=== PATIENT | male | born 1970 | race Caucasian/White ===

== ENCOUNTER 2020-12-26 15:31 | Emergency (ER) | payer OTHER, SELFPAY ==
[2020-12-26 15:45] VITALS: BP 134/94; PULSE 74; RESP 16; TEMP 36.7; O2SAT 100
--- NOTE | 2020-12-26 15:57 | ED.DENTAL ---
HPI - Dental/Oral General Chief complaint: Dental/Oral Stated complaint: Lt side facial swelling Time Seen by Provider: 12/26/20 15:49 Source: patient and RN notes reviewed Mode of arrival: ambulatory Limitations: no limitations History of Present Illness HPI Narrative: 50-year-old male presents with concern for left upper facial swelling, pain, dental pain. He reports a broken tooth in that area, the tooth has been broken for a long time. He reports he now has pain in that area. Reports she has been using heat, ibuprofen with little relief. Reports she is make an appoint with a dentist. He denies swollen lips, swollen tongue, difficulty swallowing, fever. Denies headache MD Complaint: tooth pain Related Data Home Medications Medication Instructions Recorded Confirmed lisinopril 40 mg PO DAILY 12/26/20 12/26/20 Allergies Allergy/AdvReac Type Severity Reaction Status Date / Time Penicillins Allergy Intermediate HIVES Verified 12/26/20 15:52 SHELLFISH Allergy Severe ANAPHYLACTI Uncoded 12/26/20 15:52 C Review of Systems Review of Systems: CONSTITUTIONAL: Denies malaise, chills, sweats, or fever. EYES: Denies visual changes, redness, or discharge. ENT: Reports left upper dental pain, facial swelling SKIN: Denies rash or itching. MUSCULOSKELETAL: Denies myalgia. NEUROLOGIC: Denies numbness, weakness, or headache. All systems reviewed & are unremarkable except as noted in HPI and below PMFSH Comments At time of signature, agree with nursing past medical, surgical, social and family history. There is no relevant family history pertinent to the presenting complaint Exam Narrative: GENERAL: Well-appearing, well-nourished, and in no acute distress. HEAD: Normocephalic, atraumatic. EYES: PERRLA, sclera clear, and EOMI. ENT: Nares clear. Mucous membranes moist. Oropharynx without erythema or lesions. Broken teeth, missing teeth, caries, mild left facial swelling noted NECK: Supple. No lymphadenopathy. CHEST: No respiratory distress. Speaks in full sentences. HEART: Regular rate and rhythm. SKIN: Warm, dry, no visible rash. NEURO: Alert and oriented x3. PSYCH: Normal mood and affect Course Course Emergency Course: Patient is aware of diagnosis, understands and agrees to treatment plan. Anticipatory guidance given. Patient agrees to follow-up as directed and is aware of reasons to seek care at the emergency department. Portions of this record may have been created with voice recognition software Vital Signs Vital signs: Vital Signs Temperature 98.0 F 12/26/20 15:45 Pulse Rate 74 12/26/20 15:45 Respiratory Rate 16 12/26/20 15:45 Blood Pressure 134/94 H 12/26/20 15:45 Pulse Oximetry 100 12/26/20 15:45 Temperature 98.0 F 12/26/20 15:45 Pulse Rate 74 12/26/20 15:45 Respiratory Rate 16 12/26/20 15:45 Blood Pressure 134/94 H 12/26/20 15:45 Pulse Oximetry 100 12/26/20 15:45 Reviewed. Patient has history of hypertension MDM - Dental/Oral MDM Narrative Medical decision making narrative: Patients pain and complaint coupled with physical findings are consistant with dentalgia. There are no focal signs of space occupying lesions that are compromising to the airway; no dysphagia, odynophagia, dysphonia, or dyspnea. No uvular deviation or soft palate edema. Patient is non-toxic appearing. The floor of the mouth is soft with no signs of Jose's Angina; no induration below mandible, no neck pain. Patient is without trismus or drooling and able to swallow secretions. Patient is felt appropriate for discharge home with dental follow up. Critical Care Time Critical Care Time Critical Care Time: No Discharge Plan Discharge Clinical Impression: Dental abscess Patient Disposition: Home, Self-Care Condition: Stable Instructions: Antibiotic Form, Dental Abscess (ED) Additional Instructions: Take antibiotic as directed Avoid temperature extremes May apply heat or ic
== END 2020-12-26 16:07 | disposition home or self-care (01) ==
PROVIDERS: Emergency Provider Nurse Practitioner; PCP Family Medicine
DX: K04.7 Periapical abscess without sinus (principal); I10 Essential (primary) hypertension
CPT/HCPCS: 99213; G0463

== ENCOUNTER 2021-02-14 10:21 | Emergency (ER) | payer OTHER, SELFPAY ==
--- NOTE | ~2021-02-14 | XR_ITS ---
EXAMINATION: XR finger 5th LT min 2V DATE: 02/14/2021 10:54 INDICATION: Left fifth digit pain post blunt trauma one day prior TECHNIQUE: Dorsal palmar, lateral and 2 oblique views of the left fifth digit were obtained COMPARISON: None FINDINGS: Nondisplaced comminuted fracture of the tuft of the left fifth distal phalanx. Alignment remains esse ntially anatomic. No other fractures identified. Joint spaces are normal. Soft tissue swelling about the mid to distal fifth digit. IMPRESSION: 1. Nondisplaced comminuted tuft fracture at the left fifth distal phalanx. If there is associated gisella lbed injury this would be considered equivalent of an open/compound fracture at increased risk of inf ection. Reviewed, dictated and finalized at location A. EAR POWER REACTOR OPERATOR IMPRESSION: 1. Nondisplaced comminuted tuft fracture at the left fifth distal phalanx. If t here is associated nailbed injury this would be considered equivalent of an ope n/compound fracture at increased risk of infection.
[2021-02-14 10:39] VITALS: BP 123/92; PULSE 68; RESP 16; TEMP 36.8; O2SAT 100
--- NOTE | 2021-02-14 11:15 | ED.UPPEXIN ---
HPI - Extremity Injury (Upper) General Chief Complaint: Extremity Injury, Upper Stated Complaint: Pinky Finger Lt Hand Source: patient and RN notes reviewed Mode of arrival: ambulatory History of Present Illness HPI narrative: This is a 50-year-old male who presented to urgent care with complaints of trauma to his left small finger. According to patient he smashed his finger while at work yesterday he has been experiencing pain with movement since. Patient is able to move finger with pain, capillary refill within normal limits, he does have discoloration to at pinky and his pulses are palpable. He does have a nondisplaced fracture to the left small finger. MD complaint: injury to: left Related Data Home Medications Medication Instructions Recorded Confirmed lisinopril 40 mg PO DAILY 12/26/20 02/14/21 Allergies Allergy/AdvReac Type Severity Reaction Status Date / Time Penicillins Allergy Intermediate HIVES Verified 02/14/21 10:48 SHELLFISH Allergy Severe ANAPHYLACTI Uncoded 02/14/21 10:48 C Review of Systems Review of Systems: A 14 organ system Review of Systems was performed and pertinent positives included in the HPI, otherwise remaining ROS is negative. [facility] Family History Family History (Updated 02/14/21 @ 11:37 by JARED BunchP-C) Other Family history non-contributory Exam Narrative: GENERAL: This is a well-nourished, well-developed patient, in no apparent distress. HEAD: normocephalic, atraumatic. EYES: PERRL. Sclera clear/white. Vision is grossly intact. EARS: External ears normal, auditory canals clear and without drainage, TMs normal without perforation. Hearing grossly intact. NOSE: External nose normal with no obvious nasal discharge, nares without redness, no rhinorrhea. THROAT: Mucous membranes moist, posterior pharynx clear. NECK: Neck supple, non-tender without lymphadenopathy, masses or thyromegaly. CARDIOVASCULAR: Regular rate and rhythm without murmurs, gallops, or rubs. RESPIRATORY: Clear to auscultation. Breath sounds equal bilaterally. No wheezes, rales, or rhonchi. GASTROINTESTINAL: Abdomen soft, non-tender, nondistended. Bowel sounds are active. No hepato-splenomegaly, or palpable masses. No guarding. SKIN: warm, intact with no suspicious lesions or rash, good texture and turgor. NEURO: awake, alert, and oriented to person, place and time. There were no obvious focal neurologic abnormalities. Steady gait EXTREMITIES: Left small finger with discoloration limited range of motion due to pain capillary refill within normal limits no neurovascular deficiency noted pulses palpable to the affected extremity BACK: Nontender without deformity or crepitance. No flank tenderness. Course Course Emergency Course: Finger splint placed at the left small finger. Ibuprofen 800 mg prescribed patient instructed to follow-up with a orthopedic surgeon Vital Signs Vital signs: Vital Signs Temperature 98.3 F 02/14/21 10:39 Pulse Rate 68 02/14/21 10:39 Respiratory Rate 16 02/14/21 10:39 Blood Pressure 123/92 H 02/14/21 10:39 Pulse Oximetry 100 02/14/21 10:39 Temperature 98.3 F 02/14/21 10:39 Pulse Rate 68 02/14/21 10:39 Respiratory Rate 16 02/14/21 10:39 Blood Pressure 123/92 H 02/14/21 10:39 Pulse Oximetry 100 02/14/21 10:39 Procedures Other Procedure Procedure 1: Other Procedure: Finger splint placed to the left small finger MDM - Extremity Injury (Upper) Differential Diagnosis Differential diagnosis: Likely sprain and strain of wrist, fracture of wrist, fracture of hand and other (Finger fracture) Imaging Data My impression: Nondisplaced fracture of the left fifth distal phalanx Discharge Plan Discharge Clinical Impression: Finger fracture Qualifiers: Encounter type: initial encounter Finger: little finger Fracture type: closed Phalanx: distal Fracture alignment: nondisplaced Laterality: left Qualified Code(s): S62.667A - Nondisplaced fract
== END 2021-02-14 11:21 | disposition home or self-care (01) ==
PROVIDERS: Emergency Provider Nurse Practitioner; PCP Family Medicine
DX: S62.667A Nondisplaced fracture of distal phalanx of left little finger, initial encounter for closed fracture (principal); W23.0XXA Caught, crushed, jammed, or pinched between moving objects, initial encounter; Y99.0 Civilian activity done for income or pay
CPT/HCPCS: 29130; 73140; 99214; G0463

== ENCOUNTER 2021-08-31 16:00 | Emergency (ER) | payer OTHER, SELFPAY ==
--- NOTE | ~2021-08-31 | XR_ITS ---
EXAMINATION: XR chest 2V DATE: 08/31/2021 16:44 INDICATION: Cough and shortness of breath TECHNIQUE: PA and lateral views of the chest are obtained. COMPARISON: None available FINDINGS: The lungs are free of acute opacities. There is no pleural effusion or pneumothorax. The ca rdiomediastinal silhouette is normal. The visualized bones and soft tissues are unremarkable. IMPRESSION: 1. No acute cardiopulmonary abnormality. Reviewed, dictated and finalized at location A.
[2021-08-31 16:12] VITALS: BP 110/77; PULSE 71; RESP 18; TEMP 36.7; O2SAT 99
--- NOTE | 2021-08-31 16:27 | ED.URI ---
HPI - URI/Sore Throat General Chief Complaint: Upper Respiratory Infection Stated Complaint: sob,congestion,cough Time Seen by Provider: 08/31/21 16:20 Source: patient Mode of arrival: ambulatory Limitations: no limitations History of Present Illness HPI Narrative: Mr. Chatman is a 50-year-old male patient presenting to the clinic today with complaints of shortness of breath, chest congestion, and a productive cough x5 days. The patient has seen his primary care provider and he was given a Z-Chilo, dexamethasone, Tessalon Perles, and an albuterol inhaler. He reports that he is not feeling any better and feels as though he is becoming more short of breath as he is moving around. He states he took a COVID test yesterday and it was negative. He reports he has a productive cough with grayish-brown phlegm. MD elicited complaint: cough and other (Chest congestion and shortness of breath) Related Data Home Medications Medication Instructions Recorded Confirmed lisinopril 40 mg tablet 40 mg PO DAILY 12/26/20 08/31/21 albuterol sulfate 90 mcg/actuation 1 inh inhalation DIRECTED 08/31/21 08/31/21 aerosol inhaler azithromycin 250 mg tablet 250 tablet DIRECTED 08/31/21 08/31/21 benzonatate 200 mg capsule 200 cap PO DIRECTED 08/31/21 08/31/21 dexamethasone 6 mg tablet 1 tablet DIRECTED 08/31/21 08/31/21 Allergies Allergy/AdvReac Type Severity Reaction Status Date / Time Penicillins Allergy Intermediate HIVES Verified 08/31/21 16:37 SHELLFISH Allergy Severe ANAPHYLACTI Uncoded 08/31/21 16:37 C Review of Systems Review of Systems: Pertinent positives per HPI. Patient denies any fever, chills, rash, headache, visual changes, dizziness, cough, shortness of breath, chest pain, palpitations, nausea, vomiting, diarrhea, constipation, abdominal pain, or any urinary issues. PMFSH Family History Family History Other Family history non-contributory Comments At the time of my signature, I reviewed and agree with the nursing past medical, surgical, social, and family history. There is no relevant family history pertinent to the patient complaint. Exam Narrative: General: Well-developed, well nourished, in mild respiratory distress-having to take deep breaths in between every 3-4 words when speaking Head: Normocephalic, atraumatic Eyes: Pupils equally round and reactive to light bilaterally, EOM intact, sclera and conjunctive clear, no discharge, lids normal Ears: TMs intact and clear, ear canals clear, no drainage, grossly hearing normal. Nose: Nares patent, clear nasal discharge, no inflammation, no sinus tenderness. Mouth: Oral pharynx without lesions or masses, good dentition, MMM. Neck: Supple, trachea midline, no enlargement of anterior or posterior cervical nodes, no thyroid masses or goiter palpable. Cardio: Regular rate and rhythm, s1 and s2 normal, no murmur appreciated. Resp: Crackles heard over the right lower posterior lobe, otherwise clear, SPO2 99% on room air Course Course Emergency Course: Portions of this record may have been created with voice recognition software. Level of Care: Express Care Visit Vital Signs Vital signs: Vital Signs Temperature 36.7 C 08/31/21 16:12 Pulse Rate 71 08/31/21 16:12 Respiratory Rate 18 08/31/21 16:12 Blood Pressure 110/77 08/31/21 16:12 Pulse Oximetry 99 08/31/21 16:12 Oxygen Delivery Room Air 08/31/21 16:12 Temperature 36.7 C 08/31/21 16:12 Pulse Rate 71 08/31/21 16:12 Respiratory Rate 18 08/31/21 16:12 Blood Pressure 110/77 08/31/21 16:12 Pulse Oximetry 99 08/31/21 16:12 Oxygen Delivery Room Air 08/31/21 16:12 Vital signs reviewed MDM - URI/Sore Throat MDM Narrative Medical decision making narrative: At the time of visit patient is resting comfortably on the exam table. He has a little bit of increased work to breathe. Chest x-ray was comp
== END 2021-08-31 17:16 | disposition home or self-care (01) ==
PROVIDERS: Emergency Provider Nurse Practitioner Family; PCP Family Medicine
DX: J22 Unspecified acute lower respiratory infection (principal); I10 Essential (primary) hypertension
CPT/HCPCS: 71046; 99213; G0463

== ENCOUNTER 2021-09-02 17:42 | Emergency (ER) | payer OTHER, SELFPAY ==
[2021-09-02] VITALS (8 sets, daily range): BP systolic 122–126; BP diastolic 80–90; PULSE 66–72; RESP 16–18; TEMP 36.6; O2SAT 98–100
--- NOTE | ~2021-09-02 | XR_ITS ---
EXAMINATION: XR chest 2V Exam Date/Time: 09/02/2021 17:55 CDT HISTORY: SOB, cough,htn,smoker Comparison: 08/31/2021. RESULT: Lines, tubes, and devices: None. Lungs and pleura: Clear. Cardiomediastinal silhouette: Stable cardiomediastinal silhouette. Other: No acute osseous or upper abdominal finding. IMPRESSION: No acute cardiopulmonary process. Reviewed, dictated and finalized at location K.
--- NOTE | 2021-09-02 18:05 | ED.SOB ---
HPI - SOB/Dyspnea General Chief Complaint: Shortness of Breath/Dyspnea Stated Complaint: SOB X2D Time Seen by Provider: 09/02/21 17:48 History of Present Illness HPI Narrative: 50-year-old male presents the emergency room for evaluation of increasing shortness of breath. Patient states that he recently returned from a car ride trip from [facility], where he admits to very few stops. Patient states he woke up on Friday morning with mild shortness of breath, thinking that it was likely with upper respiratory infection. Patient states that he contacted his PCP, and was told that he would not be seen due to COVID-like symptoms. 2 days later patient states he went to [facility] to take a COVID test, they came back negative. Patient then called his PCP second time, and was told again he would not be seen in the office due to COVID-like symptoms. At that time his PCP prescribed azithromycin, low-dose dexamethasone, Tessalon Perles, and an inhaler. Patient states that he was not receiving any relief with those medications. States on Friday he woke up and went to a local urgent care, where chest x-ray was performed. Per radiologist notes, chest x-ray was negative for any acute cardiopulmonary disease, however the COMBINED RAIL OPERATOR at the urgent care read that as early onset pneumonia. Patient was told to discontinue azithromycin use and started on Levaquin. Today, patient states the shortness of breath has worsened. Patient also reports wheezing and a nonproductive cough. Related Data Home Medications Medication Instructions Recorded Confirmed lisinopril 40 mg tablet 40 mg PO DAILY 12/26/20 08/31/21 albuterol sulfate 90 mcg/actuation 1 inh inhalation DIRECTED 08/31/21 08/31/21 aerosol inhaler azithromycin 250 mg tablet 250 tablet DIRECTED 08/31/21 08/31/21 benzonatate 200 mg capsule 200 cap PO DIRECTED 08/31/21 08/31/21 dexamethasone 6 mg tablet 1 tablet DIRECTED 08/31/21 08/31/21 Allergies Allergy/AdvReac Type Severity Reaction Status Date / Time Penicillins Allergy Intermediate HIVES Verified 09/02/21 17:47 SHELLFISH Allergy Severe ANAPHYLACTI Uncoded 09/02/21 17:47 C Review of Systems Review of Systems: CONSTITUTIONAL: Denies fever, chills, or sweats. EYES: Denies visual changes, redness, or discharge. ENT: Denies rhinorrhea, congestion, sore throat, or otalgia. CARDIOVASCULAR: Denies chest pain, palpitations, or edema. RESPIRATORY: Reports cough or dyspnea. NEUROLOGIC: Denies headache, numbness, dizziness, or weakness. [facility] Family History Family History Other Family history non-contributory Exam Narrative: GENERAL: Well-appearing, well-nourished, and in no acute distress. HEAD: Normocephalic, atraumatic. EYES: PERRLA and EOMI. CHEST: Inspiratory wheezing throughout, tachypneic with a respiratory rate of 24-26 HEART: Regular rate and rhythm. No murmur heard. Normal peripheral pulses. SKIN: Warm, dry, no rash. NEURO: No focal deficits. Alert and oriented x3. PSYCH: Normal mood and affect. Course Vital Signs Vital signs: Vital Signs Temperature 36.6 C 09/02/21 17:43 Pulse Rate 70 09/02/21 17:43 Respiratory Rate 18 09/02/21 17:43 Blood Pressure 126/80 09/02/21 17:43 Pulse Oximetry 100 09/02/21 17:43 Oxygen Delivery Room Air 09/02/21 17:43 Temperature 36.6 C 09/02/21 17:43 Pulse Rate 72 09/02/21 17:50 Respiratory Rate 18 09/02/21 17:43 Blood Pressure 126/80 09/02/21 17:43 Pulse Oximetry 100 09/02/21 17:51 Oxygen Delivery Room Air 09/02/21 17:51 MDM - SOB/Dyspnea MDM Narrative Medical decision making narrative: 50-year-old male presented to the emergency room for evaluation of dyspnea, most likely secondary to a viral infection. Presentation is not consistent with acute cardiac etiologies including ACS, CHF, pericardial effusion or tamponade. Not consistent with acute respiratory etiology includes
[2021-09-02] MEDS: methylPREDNISolone SOD SUCC 125 MG VIAL IV PUSH (18:18)
[2021-09-02 18:23] LABS: Basophils Absolute Auto 0.1 K/mm3 (0.0-0.1); Basophils Percent Auto 0.3 % (0.2-1.2); Hematocrit 48.7 % (42.0-52.0); Hemoglobin 16.3 g/dL (14.0-18.0); Immature Granulocyte Absolute 0.16 K/mm3 (0.00-0.031); Immature Granulocyte Percent A 0.9 % (0-0.5); Lymphocytes Absolute Auto 1.93 K/mm3 (0.9-3.2); Lymphocytes Percent Auto 10.8 % (18.3-44.2); Mean Corpuscular HGB Conc 33.5 g/dl (32-36); Mean Corpuscular Hemoglobin 30.4 pg (26-34); Mean Corpuscular Volume 90.7 fl (80-100); Mean Platelet Volume 8.9 fl (7.4-10.4); Monocytes Absolute Auto 1.3 K/mm3 (0.1-0.6); Monocytes Percent Auto 7.4 % (2.6-8.5); Neutrophils Absolute Auto 14.4 K/mm3 (1.3-6.7); Neutrophils Percent Auto 80.6 % (45.5-73.1); Platelet Count Result 322 k/mm3 (150-375); Red Blood Count 5.37 M/mm3 (4.6-6.20); Red Cell Distribution Width 12.6 % (11.5-14.5); White Blood Count 17.8 K/mm3 (4.5-10.0)
[2021-09-02 18:35] LABS: Alanine Aminotransferase 23 U/L (6-50); Albumin Level 4.4 g/dL (3.5-5.1); Alkaline Phosphatase 69 U/L (38-126); Anion Gap 9 mmol/L (8-16); Aspartate Amino Transferase 24 U/L (17-59); Bilirubin,Total 0.5 mg/dL (0.2-1.3); Blood Urea Nitrogen 25 mg/dL (9-20); Calcium 9.1 mg/dL (8.4-10.2); Carbon Dioxide 20 mmol/L (22-30); Chloride 107 mmol/L (98-107); D Dimer 0.33 ug/mL (<0.48); Estimated CRCL calculation 82 ml/min; Estimated Glomerular Filt Rate 59; Glucose 115 mg/dL (65-110); Lactic Acid Reflex 1.8 mmol/L (0.7-2.0); Potassium 4.1 mmol/L (3.4-5.0); Sodium 136 mmol/L (137-145)
[2021-09-02 18:59] LABS: Influenza A QL RT-PCR Negative (Negative); Influenza B QL RT-PCR Negative (Negative); SARS-CoV-2 RNA PCR Negative
[2021-09-02] MEDS: ALBUTEROL SULFATE NEB 2.5 MG/3 ML INH INHALATION (19:37)
[2021-09-02] MEDS: IPRATROPIUM BR 0.02% INH SOLN 0.5 MG/2.5 ML VIAL INHALATION (19:38)
[2021-09-02 19:58] LABS: NT Pro B Type Natriuretic Pept 159 pg/mL (5-100)
[2021-09-02 20:07] LABS: Troponin I < 0.012 ng/mL (0.000-0.034)
== END 2021-09-02 20:42 | disposition home or self-care (01) ==
PROVIDERS: Emergency Provider Nurse Practitioner Family
DX: R06.2 Wheezing (principal); R06.02 Shortness of breath; Z20.822 Contact with and (suspected) exposure to COVID-19
CPT/HCPCS: 36415; 71046; 80053; 83605; 83880; 84484; 85025; 85380; 87502; 94640; 96374; 99284; C9803; J2930; U0003; U0005

== ENCOUNTER 2021-10-11 05:45 | Emergency (ER) | payer OTHER, SELFPAY ==
--- NOTE | ~2021-10-11 | CT_ITS ---
EXAMINATION: CT abdomen pelvis wo con DATE: 10/11/2021 06:35 INDICATION: Right-sided flank pain with nausea. History of renal stones. Pyelonephritis. TECHNIQUE: Computed tomography (CT) of the abdomen and pelvis was performed without intravenous contr ast. The dose-length product was 1613.55 mGy-cm. Automated exposure control and iterative reconstruct ion technique were employed. COMPARISON: CT dated 09/04/2016. FINDINGS: Lung bases unremarkable. Heart size normal. No significant pleural or pericardial effusion. There are calcified granulomas in the liver and spleen. Gallbladder is present. The pancreas, adrena l glands are unremarkable. There is atrophy of the upper pole of the left kidney with nonobstructing left renal stones. There is a 3 mm right UVJ stone with mild hydronephrosis. Bladder is decompressed. Nonobstructive bowel gas pattern. Normal appendix. No evidence for appendicitis or diverticulitis. N o free air or free fluid. Mild lumbar spondylosis. IMPRESSION: 1. Right UVJ stone measuring 3 mm with mild hydronephrosis. 2: Nonobstructing left nephrolithiasis with left renal atrophy. Reviewed, dictated and finalized at location L.
[2021-10-11 05:52] VITALS: BP 151/94; PULSE 69; RESP 18; TEMP 36.2; O2SAT 100
[2021-10-11 06:12] LABS: Alanine Aminotransferase 17 U/L (6-50); Albumin Level 4.2 g/dL (3.5-5.1); Alkaline Phosphatase 65 U/L (38-126); Anion Gap 7 mmol/L (8-16); Aspartate Amino Transferase 22 U/L (17-59); Bilirubin,Total 0.5 mg/dL (0.2-1.3); Blood Urea Nitrogen 17 mg/dL (9-20); Calcium 9.2 mg/dL (8.4-10.2); Carbon Dioxide 27 mmol/L (22-30); Chloride 106 mmol/L (98-107); Estimated CRCL calculation 89 ml/min; Estimated Glomerular Filt Rate > 60; Glucose 122 mg/dL (65-110); Lipase 225 U/L (23-300); Potassium 4.3 mmol/L (3.4-5.0); Sodium 140 mmol/L (137-145)
[2021-10-11 06:14] LABS: Basophils Absolute Auto 0.1 K/mm3 (0.0-0.1); Basophils Percent Auto 0.6 % (0.2-1.2); Eosinophils Absolute Auto 0.2 K/mm3 (0-0.3); Eosinophils Percent Auto 1.7 % (0-4.4); Hematocrit 48.8 % (42.0-52.0); Hemoglobin 15.7 g/dL (14.0-18.0); Immature Granulocyte Absolute 0.07 K/mm3 (0.00-0.031); Immature Granulocyte Percent A 0.6 % (0-0.5); Lymphocytes Absolute Auto 1.98 K/mm3 (0.9-3.2); Lymphocytes Percent Auto 17.5 % (18.3-44.2); Mean Corpuscular HGB Conc 32.2 g/dl (32-36); Mean Corpuscular Hemoglobin 30.4 pg (26-34); Mean Corpuscular Volume 94.6 fl (80-100); Mean Platelet Volume 9.2 fl (7.4-10.4); Monocytes Absolute Auto 1.1 K/mm3 (0.1-0.6); Neutrophils Absolute Auto 7.9 K/mm3 (1.3-6.7); Neutrophils Percent Auto 69.6 % (45.5-73.1); Platelet Count Result 332 k/mm3 (150-375); Red Blood Count 5.16 M/mm3 (4.6-6.20); Red Cell Distribution Width 12.9 % (11.5-14.5); White Blood Count 11.3 K/mm3 (4.5-10.0)
[2021-10-11 06:14] LABS: Appearance Urine Clear (Clear); Bilirubin Urine Negative (Negative); Blood Urine 2+ (Negative); Color Urine Yellow (Yellow); Glucose Urine UA Negative (Negative); Ketones Urine Negative (Negative); Leukocyte Esterase Ur Negative LEU/UL (Negative); Nitrate Urine Negative (Negative); Protein Urine Negative (Negative); Urobilinogen Urine 0.2 mg/dL (<2.0); pH Urine 6.5 (5.0-9.0)
[2021-10-11 06:18] LABS: Mucus Urine Rare /lpf
--- NOTE | 2021-10-11 06:18 | ED.GENADULT ---
HPI - General Adult General Chief complaint: Abdominal Pain Stated complaint: rt lower abd pain, nausea Time Seen by Provider: 10/11/21 06:08 History of Present Illness HPI narrative: Patient is a 50-year-old gentleman who presents the emergency department with chief complaint of right lower quadrant and right flank pain. Patient reports that he has history of kidney stones and reports that this evening he suddenly woke up from sleep having severe pain in his right lower quadrant and right flank area. Patient states it feels similar to whenever he passed a kidney stone in the past patient reports he is feels diaphoretic reports that he is nauseated patient reports symptoms are not worsened by anything nor are they improved by anything Related Data Home Medications Medication Instructions Recorded Confirmed lisinopril 40 mg tablet 40 mg PO DAILY 12/26/20 08/31/21 albuterol sulfate 90 mcg/actuation 1 inh inhalation DIRECTED 08/31/21 08/31/21 aerosol inhaler azithromycin 250 mg tablet 250 tablet DIRECTED 08/31/21 08/31/21 benzonatate 200 mg capsule 200 cap PO DIRECTED 08/31/21 08/31/21 dexamethasone 6 mg tablet 1 tablet DIRECTED 08/31/21 08/31/21 Allergies Allergy/AdvReac Type Severity Reaction Status Date / Time Penicillins Allergy Intermediate HIVES Verified 10/11/21 05:57 SHELLFISH Allergy Severe ANAPHYLACTI Uncoded 10/11/21 05:57 C Review of Systems Review of Systems: A 10 system review of systems was completed on the patient and is negative except for what is stated in the HPI. Nursing and ancillary documentation was reviewed. [facility] Family History Family History Other Family history non-contributory Exam Narrative: GENERAL: Well-appearing, well-nourished, moderate pain distress, diaphoretic HEAD: Normocephalic, atraumatic. EYES: PERRLA and EOMI. ENT: Nares clear, no rhinorrhea or epistaxis. Mucous membranes moist. NECK: Supple. CHEST: Clear to auscultation. No respiratory distress. HEART: Regular rate and rhythm. No murmur heard. Normal peripheral pulses. ABDOMEN: Soft, nontender, nondistended, normal active bowel sounds. EXTREMITIES: Normal range of motion. No edema. SKIN: Warm, dry, no rash. NEURO: No focal deficits. Alert and oriented x3. PSYCH: Normal mood and affect. Course Course Emergency Course: Patient's pain is being controlled with IV narcotics nausea medications and fluids a CT scan has been ordered to evaluate for possible obstructing stone. Vital Signs Vital signs: Vital Signs Temperature 36.2 C L 10/11/21 05:52 Pulse Rate 69 10/11/21 05:52 Respiratory Rate 18 10/11/21 05:52 Blood Pressure 151/94 H 10/11/21 05:52 Pulse Oximetry 10/11/21 05:52 Oxygen Delivery Room Air 10/11/21 05:52 Temperature 36.2 C L 10/11/21 05:52 Pulse Rate 10/11/21 05:52 Respiratory Rate 18 10/11/21 05:52 Blood Pressure 151/94 H 10/11/21 05:52 Pulse Oximetry 10/11/21 05:52 Oxygen Delivery Room Air 10/11/21 05:52 Medical Decision Making Vital Signs Vital Signs: Vital Signs Temperature 36.2 C L 10/11/21 05:52 Pulse Rate 10/11/21 05:52 Respiratory Rate 10/11/21 05:52 Blood Pressure 151/94 H 10/11/21 05:52 Pulse Oximetry 10/11/21 05:52 Oxygen Delivery Room Air 10/11/21 05:52 Temperature 36.2 C L 10/11/21 05:52 Pulse Rate 10/11/21 05:52 Respiratory Rate 10/11/21 05:52 Blood Pressure 151/94 H 10/11/21 05:52 Pulse Oximetry 10/11/21 05:52 Oxygen Delivery Room Air 10/11/21 05:52 Lab Data Result diagrams: 10/11/21 05:58 10/11/21 05:58 Labs: Lab Results 10/11/21 10/11/21 10/11/21 Range/Units 05:58 05:58 06:03 WBC 11.3 H (4.5-10.0) K/mm3 RBC 5.16 (4.6-6.20) M/mm3 Hgb 15.7 (14.0-18.0) g/dL Hct 48.8 (42.0-52.0) % MCV 94.6 (80-100) fl MCH 30.4 (
[2021-10-11 06:24] LABS: Add Urine Microscopic? YES
[2021-10-11] MEDS: MORPHINE SULFATE (*CRX) 4 MG/ML INJ IV PUSH (06:24)
[2021-10-11] MEDS: ONDANSETRON INJ 4 MG/2 ML VIAL IV PUSH (06:24)
[2021-10-11] MEDS: SODIUM CHLORIDE 0.9% IV 1,000 ML 999 ML IV CONT (06:24)
[2021-10-11 06:34] VITALS: BP 148/99; PULSE 63; RESP 18; O2SAT 98
--- NOTE | 2021-10-11 07:18 | PC.NURSE ---
Bedside report received from Sofia CABRERA. Patient resting comfortably.
[2021-10-11 07:35] VITALS: BP 142/88; PULSE 52; O2SAT 97
[2021-10-11 08:09] VITALS: BP 130/88; PULSE 86; RESP 16; O2SAT 100
== END 2021-10-11 08:15 | disposition home or self-care (01) ==
PROVIDERS: Emergency Medicine; Emergency Provider General Practice; PCP Family Medicine
DX: N13.2 Hydronephrosis with renal and ureteral calculous obstruction (principal)
CPT/HCPCS: 36415; 74176; 80053; 81001; 83690; 85025; 96361; 96374; 96375; 99284; J2270; J2405; J7030

== ENCOUNTER 2021-10-19 17:27 | Emergency (ER) | payer OTHER, SELFPAY ==
--- NOTE | 2021-10-19 19:00 | PC.NURSE ---
pt called twice for triage and did not answer. pt left without being seen by triage or provider
== END 2021-10-19 19:00 | disposition left against medical advice (07) ==
LOC: ANHED 19:06
PROVIDERS: PCP Family Medicine
DX: Z53.21 Procedure and treatment not carried out due to patient leaving prior to being seen by health care provider (principal)
CPT/HCPCS: 99199

== ENCOUNTER 2023-07-12 12:03 | Emergency (ER) | payer OTHER, SELFPAY ==
[2023-07-12 12:11] VITALS: BP 139/92; PULSE 69; RESP 18; TEMP 36.1; O2SAT 100
--- NOTE | 2023-07-12 12:34 | ED_ITS ---
HPI - Dental/Oral General Chief complaint: Dental/Oral Stated complaint: Mouth Irritation Time Seen by Provider: 07/12/23 12:34 Source: patient, family, RN notes reviewed and old records reviewed Mode of arrival: ambulatory Limitations: no limitations History of Present Illness HPI Narrative: 52 year old male who [facility] with complaints of dental pain with redness and swelling around #22 and #23 teeth with noted caries. Patient has several broken off molars on right lower mouth and remaining bottom teeth all look to have caries. Patient reports that he has dental appointment on Friday hopefully to get started on getting teeth pulled. Patient reports that he has been taking Tylenol, Ibuprofen, had some left over [place] and also using Oragel for his pain. Patent reports no difficulty with swallowing or with his breathing. MD Complaint: tooth pain Location: Tooth # (# 22 and #23) Onset (ago): day(s) (2) Severity scale (1-10): 7 Treatment prior to arrival: topical analgesic, oral analgesic (Oragel) and other ([place]) Related Data Home Medications Medication Instructions Recorded Confirmed lisinopril 40 mg tablet 40 mg PO DAILY 12/26/20 07/12/23 Allergies Allergy/AdvReac Type Severity Reaction Status Date / Time Penicillins AdvReac Mild HIVES Verified 07/12/23 12:06 SHELLFISH Allergy Severe Anaphylaxis Uncoded 07/12/23 12:06 Review of Systems Review of Systems: CONSTITUTIONAL: Denies fever, chills, or sweats. ENT: Denies rhinorrhea, congestion, sore throat, or otalgia. Reports dental pain #22 and#23 CARDIOVASCULAR: Denies chest pain, palpitations, or edema. RESPIRATORY: Denies cough or dyspnea. SKIN: Denies rash or itching. MUSCULOSKELETAL: Denies myalgia. NEUROLOGIC: Denies headache All systems reviewed & are unremarkable except as noted in HPI and below PMFSH Past Medical History Medical History (Updated 07/13/23 @ 14:56 by Judi Daniels NP) Dental abscess Dental caries Hypertension Kidney stones Right distal ureteral calculus Surgical History Surgical History (Updated 07/13/23 @ 14:51 by Judi Daniels NP) H/O vasectomy History of ankle surgery ORIF right ankle fracture and tendon repair S/P cystoscopy with ureteral stent placement Family History Family History (Updated 07/12/23 @ 14:04 by Judi Daniels NP) Other Family history non-contributory Social History Social History (Updated 07/13/23 @ 14:49 by Judi Daniels NP) Smoking packs per day: 0.5 Smoking cigarettes per day: 10.0 Smoking status: Current every day smoker Tobacco type: cigarettes Alcohol intake: current Alcohol use details: social Substance use type: does not use Living arrangements: with family Gender identity (if verbalized by the patient): Male Comments At time of signature, agree with nursing past medical, surgical, social and family history. There is no relevant family history pertinent to the presenting complaint Exam Narrative: GENERAL: Well-appearing, well-nourished, and in no acute distress. HEAD: Normocephalic, atraumatic. EYES: PERRLA and EOMI. ENT: Nares clear, no rhinorrhea or epistaxis. Mucous membranes moist. Missing teeth, broken teeth, caries, swollen red gums around #22 and #23 teeth, no trismus or Jose angina NECK: Supple.no lymphadenopathy CHEST: Clear to auscultation. No respiratory distress.SAO2 100% on room air HEART: Regular rate and rhythm. No murmur heard. Normal peripheral pulses. SKIN: Warm, dry, no rash. NEURO: No focal deficits. Alert and oriented x3. Course Course Emergency Course: Patient is aware of diagnosis, understands and agrees to treatment plan. Anticipatory guidance given. Patient agrees to follow-up as directed and is aware of reasons to seek care at the emergency department. Portions of this record may have been created with voice recognition software Level of Care: Express Care Visit Vital Signs Vital signs: Vital Signs Temperature 36.1 C L 07/12/23 12:11 Pulse Rate 69 07/12/23 12:11 Respiratory Rate 18 07/12/23 12:11 Blood Pressure 139/92 H 07/12/23 12:11 Pulse Oximetry 100 07/12/23 12:11 Oxygen Delivery Room Air 07/12/23 12:11 Temperature 36.1 C L 07/12/23 12:11 Pulse Rate 69 07/12/23 12:11 Respiratory Rate 18 07/12/23 12:11 Blood Pressure 139/92 H 07/12/23 12:11 Pulse Oximetry 100 07/12/23 12:11 Oxygen Delivery Room Air 07/12/23 12:11 Reviewed MDM - Dental/Oral MDM Narrative Medical decision making narrative: Patients pain and complaint coupled with physical findings are consistent with dentalgia. There are no focal signs of space occupying lesions that are compromi sing to the airway; no dysphagia, odynophagia, dysphonia, or dyspnea. No uvular deviation or soft palate edema. Patient is non-toxic appearing. The floor of the mouth is soft with no signs of Jose's Angina; no induration below mandible, no neck pain.? Patient is without trismus or drooling and able to swallow secretions.? Patient is felt appropriate for discharge home with dental follow up. Differential Diagnosis Differential diagnosis: Likely gingival abscess, dental caries, toothache, dental abscess and other (dentalgia) Medical Records Attestation: I reviewed the patient's medical records. Critical Care Time Critical Care Time Critical Care Time: No Discharge Plan Discharge Clinical Impression: Dental abscess, Toothache Patient Disposition: Home, Self-Care Condition: Stable Instructions: Antibiotic Form, Dental Abscess (ED), Toothache (ED) Additional Instructions: Avoid temperature extremes May apply heat or ice to the face Gentle brushing and flossing Antibiotic as directed Tylenol for lesser pain Use ibuprofen regularly Follow-up with the dentist as soon as possible--see the list provided If your symptoms persist, change or worsen significantly before you can contact your personal physician then please, without delay, go to the emergency department for further evaluation. Follow-up with PCP in 7-10 days or sooner if needed Follow up with PCP soon in regards to your blood pressure which is elevated above threshold for referral. Blood pressure above 120/80 may indicate pre- hypertension. Prescriptions: New clindamycin HCl 300 mg capsule 300 mg PO Q8H Qty: 30 0RF Rx Instructions: take with food chlorhexidine gluconate [Peridex] 0.12 % mouthwash 15 ml buccal BID Qty: 473 0RF No Action lisinopril 40 mg tablet 40 mg PO DAILY Follow-up/Referrals: Margaret,Gabi Hester APRN [Primary Care Provider] - Stand Alone Forms: Work/School Release IP Time of Disposition: 12:45 Quality Adilson Coma Scale Eyes: Open Verbal: Oriented and Alert Motor: Follows Commands Adilson Coma Total Score: 15
== END 2023-07-12 12:48 | disposition home or self-care (01) ==
PROVIDERS: Emergency Provider Registered Nurse; PCP Nurse Practitioner Family
DX: K04.7 Periapical abscess without sinus (principal); K08.89 Other specified disorders of teeth and supporting structures; F17.210 Nicotine dependence, cigarettes, uncomplicated; I10 Essential (primary) hypertension; Z98.52 Vasectomy status
CPT/HCPCS: 99213; G0463

== ENCOUNTER 2024-10-30 12:17 | Emergency (ER) | payer OTHER, SELFPAY ==
--- NOTE | ~2024-10-30 | XR_ITS ---
EXAMINATION: XR shoulder LT min 2V DATE: 10/30/2024 12:56 INDICATION: Left shoulder pain TECHNIQUE: AP internally and externally rotated, AP oblique externally rotated and transscapular Y vi ews of the left shoulder were obtained. COMPARISON: None FINDINGS: Normal alignment. No fracture. Glenohumeral joint is normal. Mild acromioclavicular osteoarthritis. Small subacromial spur. Soft tissues are unremarkable. Visualized left lung is clear. IMPRESSION: Mild left acromioclavicular osteoarthritis and small subacromial spur. Reviewed, dictated and finalized at location A.
[2024-10-30 12:19] VITALS: BP 156/108; PULSE 115; RESP 20; TEMP 36.7; O2SAT 99
--- OUTSIDE RECORDS SUMMARY | 2024-10-30 12:19 | XMS_ITS | Clinical Summary ---
Author Organization [facility] Care Team Providers Care Air Traffic Instructor Name Role Phone Unavailable Primary Care Provider Unavailabl e Social History Tobacco Use Types Packs/Day Years Used Date Smoking Tobacco: Never Assessed Sex and Gender Information Value Date Recorded Sex Assigned at Not on file Legal Sex Male 10:19 AM CDT Gender Identity Not on file Sexual Orientation Not on file Plan of Treatment Health Maintenance Due Date Last Done Comments Hepatitis C Virus (HCV) Screening 1970 Hepatitis B Immunization (2 of 3 - 19+ 3-dose series) 08/08/2000 07/11/2000 Cologuard 12/02/2016 Colonoscopy 12/02/2016 Colorectal Cancer Screening 12/02/2016 Immunochemical Fecal Occult Blood 12/02/2016 Pneumococcal Immunization (5 0+ years) (1 of 1 - PCV) 12/02/2021 Zoster Immunization (1 of 2) 12/02/2021 SARS-COV-2 Immunization (1 - 2023-25 season) 2023 Influenza Immunization (#1) 2024 Respiratory Syncytial Virus (RSV) Immunization (Adult) (1 - 1-dose 75+ series) 12/02/2046 DTaP/Tdap/Td Immunization Discontinued 02/26/2017 TdaP Immunization Completed 02/26/2017 Human Papillomavirus (HPV) Immunization Aged Out No longer eligible b ased on patient's age to complete this topic Meningococcal Immunization (ACWY) Aged Out No longer eligible based on patient's age to complete this topic Rotavirus Immunization Aged Out No lo nger eligible based on patient's age to complete this topic
--- OUTSIDE RECORDS SUMMARY | 2024-10-30 12:19 | XMS_ITS | Encounter Summary ---
Author Organization [facility] Address [facility] [place] [address] Care Team Providers Care Cardiac Technologist Name Role Phone Gabi Robles NP Primary Care Provider + [phone] Encounter Details Date Type Department Care Team (Latest Contact Info) Description 04/29/2023 Atilekt Message Enc [facility]pecial[facility] - [address], [address] [place] [id number] [facility], [facility] Provider Reschedule procedure Social History Tobacco Use Types Packs/Day Years Used Date Smoking Tobacco: Every Day Cigarettes 0.5 20 Smokeless Tobacco: Never Alcohol Use Standard Drinks/Week Comments Yes 10 (1 standard drink = 0.6 oz pu re alcohol) 1-2 mo Humiliation, Afraid, Rape, and Kick questionnair e Answer Date Recorded Within the last year, have y ou been afraid of your partner or ex-partner? No 07/24/2022 Within the last year, have y ou been humiliated or emotionally abused in other ways by your partner or ex-partner? No Within the last year, have y ou been kicked, hit, slapped, or otherwise physically hurt by your partner or ex-partner? No 07/24/2022 Within the last year, have y ou been raped or forced to have any kind of sexual activity by your partner or ex-partner? No 07/24/2022 Social Connection and Isolation Panel [NHANES] A nswer Date Recorded In a typical week, how many times do you talk on the phone with family, friends, or neighbors? Twice a week 07/25/19 How often do you get togethe r with friends or relatives? Once a week 07/24/2022 How often do you attend chur ch or shinto services? Never 07/24/2022 Do you belong to any clubs o r organizations such as christian groups, unions, fraternal or athletic groups, or school groups? Yes 07/24/2022 How often do you attend meet ings of the clubs or organizations you belong to? 1 to 4 times per year 07/24/2022 Are you , , di vorced, , never , or living with a partner? 07/24/2022 AUDIT-C Answer Date Recorded Q1: How often do you have a drink containing alc ohol? 2-4 times a month 07/24/2022 Q2: How many drinks containi ng alcohol do you have on a typical day when you are drinking? 3 or 4 07/24/2022 Q3: How often do you have si x or more drinks on one occasion? Monthly 07/24/2022 Overall Financial Resource Strain (CARDIA) Answe r Date Recorded How hard is it for you to pa y for the very basics like food, housing, medical care, and heating? Not hard at all 07/24/2022 PHQ-2 Answer Date Recorded Patient Health Questionnaire-2 Score 0 02/21/2023 [facility] - Occupational Stress Questionnaire Answer Date Recorded Do you feel stress - tense, restless, nervous, or anxious, or unable to sleep at night because your mind is troubled all the time - these days? Very much 07/24/2022 Exercise Vital Sign Answer Date Recorde d On average, how many days pe r week do you engage in moderate to strenuous exercise (like a brisk walk)? 1 day 07/24/2022 On average, how many minutes do you engage in exercise at this level? 10 min 07/24/2022 Hunger Vital Sign Answer Date Recorded Within the past 12 months, y ou worried that your food would run out before you got the money to buy more. Never true 07/25/19 23 Within the past 12 months, t he food you bought just didn't last and you didn't have money to get more. Never true 07/24/2022 PRAPARE - Transportation Answer Date Re corded In the past 12 months, has l ack of transportation kept you from medical appointments or from getting medications? No 05/2022 In the past 12 months, has l ack of transportation kept you from meetings, work, or from getting things needed for daily living? No 07/24/2022 Housing Stability Vital Sign Answer Adebayo e Recorded In the last 12 months, was t here a time when you were not able to pay the mortgage or rent on time? No 07/24/2022 In the last 12 months, how many places have you lived? 1 07/24/2022 In the last 12 months, was t here a time when you did not have a steady place to sleep or slept in a care home (including now)? No 07/24/2022 Sex and Gender Information Value Date Recorded Sex Assigned at Male 07/20/2022 2:45 AM CDT Legal Sex Male 7:50 PM CDT Gender Identity Male 07/20/2022 2:45 AM CDT Sexual Orientation Straight 07/20/2022 2: 45 AM CDT documented as of this encounter Functional Status * Are you deaf or do you have serious difficulty hearing Answer Date of Assessment Author Status No 07/24/2022 3:19 PM Rosalinda Moncada RN Active * Are you blind or do you have serious difficulty seeing, even when wearing glasses? Answer Date of Assessment Author Status No 07/24/2022 3:19 PM RENATOT Rosalinda Arvizu RN Active * Do you have serious difficulty walking or climbing stairs? Answer Date of Assessment Author Status No 07/24/2022 3:19 PM Rosalinda Moncada RN Active * Do you have difficulty dressing or bathing? Answer Date of Assessment Author Status No 07/24/2022 3:19 PM Rosalinda Moncada RN Active * Because of a physical, mental, or emotional condition, do you have difficulty doing errands alone such as visiting a doctor's office or shopping? Answer Date of Assessment Author Status No 07/24/2022 3:19 PM CDT Nolberto, Deirdhre P, RN Active documented as of this encounter Mental Status * Because of a physical, mental, or emotional condition, do you have serious difficulty concentrating, remembering, or making decisions? Answer Entry Date Author Status No 07/24/2022 3:19 PM CDT Rosalinda Arvizu RN Active documented in this encounter Plan of Treatment Not on file documented as of this encounter Visit Diagnoses Not on filedocumented in this encounter Additional Health Concerns Assessment Noted Time PHQ-9 Depression Total Score: 8 08/08/19 23 8:54 AM CDT documented as of this encounter Care Teams Cardiac Technologist Relationship Specialty [place] [address] [place] [address] PCP - General Nurse Practitioner Family 02/22/22 documented as of this encounter
--- OUTSIDE RECORDS SUMMARY | 2024-10-30 12:20 | XMS_ITS | Encounter Summary ---
Author Organization [facility] Address [address] [place] [address] Care Team Providers Care Com Writer Name Role Phone Gabi Robles NP Primary Care Provider [phone] Encounter Details Date Type Department Care Team (Late st Contact Info) Description 04/25/2022 iSyndica Message Enc [facility] Family & Internal Medicine [address] [phone] [place] [id number] [place] [id number] Test results Social History Tobacco Use Types Packs/Day Years Used Date Smoking Tobacco: Every Day Cigarettes 0.5 20 Smokeless Tobacco: Never Alcohol Use Standard Drinks/Week Comments Yes 0 (1 standard drink = 0.6 oz pur e alcohol) social PHQ-2 Answer Date Recorded PHQ-2 Score - If the patient scores above 3, please move on to questions 3-9 0 02/27/2022 Sex and Gender Information Value Date Recorded Sex Assigned at Male 07/20/2022 2:45 AM CDT Legal Sex Male 7:50 PM CDT Gender Identity Male 07/20/2022 2:45 AM CDT Sexual Orientation Straight 07/20/2022 2: 45 AM CDT COVID-19 Exposure Response Date Recorded In the last 10 days, have yo u been in contact with someone who was confirmed or suspected to have Coronavirus/COVID-19? No / Unsure 04/24/2022 2:45 PM RAILROAD CONSTRUCTION DIRECTOR documented as of this encounter Plan of Treatment Not on file documented as of this encounter Visit Diagnoses Not on filedocumented in this encounter Care Teams Com Writer Relationship Specialty Start Date End Date Gabi Robles, CHARGE ACCOUNT CLERK [id number] [address] [place] [phone] PCP - General Nurse Practitioner Family 02/22/22 documented as of this encounter
--- OUTSIDE RECORDS SUMMARY | 2024-10-30 12:20 | XMS_ITS | Clinical Summary ---
Author Organization [facility] Address [facility] [place] [address] Care Team Providers Care Farm Assistant Name Role Phone Gabi Robles NP Primary Care Provider [phone] Allergies Active Allergy Reactions Criticality Noted Date Comments Penicillins Rash,Itching High 12/20/2016 Shellfish-Derived Products Rash Low 7 Medications hydrOXYzine (ATARAX) 25 MG tabletIndication s:Severe anxiety Take 1 tablet (25 mg total) by mouth 3 (three) times daily as needed for Anxiety. 90 tablet 1 3 Active Sod Picosulfate-Mag Ox-Cit Acd (CLENPIQ) 10-3.5-12 MG-GM -GM/160ML SolutionIndicati ons:Screening for colon cancer Take 1 Bottle by mouth 2 (two) times daily. Take as directed by GI provider 350 mL 3 Active Additional Information Patient not taking.Reported on 05/13/2023 lisinopril (PRINIVIL) 40 MG tabletIndication s:Essential hypertension take 1 tablet by mouth every day 30 tablet 4 Active Active Problems Problem Noted Date Diagnosed Date S/P peroneal tendon repair 11/01/2022 Cigarette nicotine dependenc e with nicotine-induced disorder 09/04/2022 Tendinitis of right peroneus brevis tendon 09/04 Severe anxiety 07/22/2022 Severe depression (CMS/HCC HHS/HCC) 07/22/2022 Fatigue 02/27/2022 Chronic low back pain 05/24/2020 Lumbar spondylosis 05/24/2020 Essential hypertension 02/02/2020 Vitamin D deficiency 11/17/2018 Pain in joint of left shoulder 10/13/2018 Smoker 10/13/2018 Obesity (BMI 30-39.9) 02/19/2017 Resolved Problems Problem Noted Date Diagnosed Date Resolved Date Screening for colon cancer 02/21/2023 1 05/04/2022 Screening for colon cancer 02/21/2023 0 03/31/2023 Screening for colon cancer 02/21/2023 0 04/21/2023 Screening for colon cancer 02/21/2023 0 04/28/2023 Ruptured, tendon, Achilles 08/30/2022 0 12/04/2022 Overview (08/30/2022): Added automatically from request for surgery [id number] Enteritis 07/24/2022 08/28/2022 Closed avulsion fracture of right ankle, initial encounter 07/22/2022 12/04/2022 Posterior rhinorrhea 02/27/2022 023 Sinusitis 02/27/2022 07/22/2022 Upper respiratory infection 02/27/2022 07/22/2022 Bronchitis 08/29/2021 07/22/2022 Cough 08/29/2021 07/22/2022 Hyperlipidemia 11/17/2018 07/22/2022 Hypersomnia with sleep apnea 10/13/2018 07/22/2022 Renal cyst 12/20/2016 08/07/2022 Encounter for preventive health examination 12/20/2016 03/04/2022 Hematuria 12/20/2016 12/04/2022 Immunizations Immunization Administration Dates Next Due Hepatitis B Vaccine Adult 07/11/2000 Tdap (Generic) 02/26/2017 Family History Medical History Relation Comments Heart Attack Brother Heart Attack Father ckd Mother Stomach cancer Sister Relation Status Comments Brother Father Mother Sister Social History Tobacco Use Types Packs/Day Years Used Date Smoking Tobacco: Every Day Cigarettes 0.5 20 Smokeless Tobacco: Never Tobacco Cessation:Ready to Q uit: No; Counseling Given: Yes Alcohol Use Standard Drinks/Week Comments Yes 10 [...] 07/24/2022 How often do you attend chur or rastafari services? Never 07/24/2022 Do you belong to any clubs o r organizations such as yazidi groups, unions, fraternal or athletic groups, or [...] Recorded Patient Health Questionnaire-2 Score 0 02/21/2023 [facility] - Occupational Stress Questionnaire Answer Date Recorded [...] place to sleep or slept in a halfway (including now)? No 07/24/2022 Sex and Gender Information Value Date Recorded Sex Assigned at Male 07/20/2022 2:45 AM CDT Legal Sex Male 7:50 PM CDT Gender Identity Male 07/20/2022 2:45 AM CDT Sexual Orientation Straight 07/20/2022 2: 45 AM CDT Last Filed Vital Signs Vital Sign Reading Time Taken Comments Blood Pressure 139/89 05/13/2023 4:01 PM BRONZE PLATER Pulse 72 05/13/2023 4:01 PM BRONZE PLATER Temperature 36.3 C (97.3 F) 02/21/2023 2:46 PM BRONZE PLATER Respiratory Rate 20 02/21/2023 2:46 PM BRONZE PLATER Oxygen Saturation 99% 05/13/2023 4:01 PM BRONZE PLATER Inhaled Oxygen Concentration - - Weight 118 kg (260 lb 1.6 oz) 05/13/2023 4:01 PM BRONZE PLATER Height 185.4 cm (6' 1) 02/21/2023 2:46 PM BRONZE PLATER Body Mass Index 34.32 02/21/2023 2:46 PM BRONZE PLATER Plan of Treatment Health Maintenance Due Date Last Done Comments Colorectal Cancer Screening Colonoscopy (10 Years) 1971 Annual Physical 12/02/1974 Pneumococcal Vaccine: 50+ Ye ars (1 of 2 - PCV) 12/02/1990 Hepatitis B Vaccines (2 of 3 - 19+ 3-dose series) 08/08/2000 07/11/2000 Zoster Vaccines (1 of 2) 12/02/2021 COVID-19 Vaccine (1 - 2023-2 5 season) 2023 PHQ-2 (Physician [place]amonte) 03/24/2024 02/21/2023 DTaP, Tdap and Td Vaccines ( 2 - Td or Tdap) 02/26/2027 02/26/2017 Hepatitis C 08/28/2052 Postponed from 12/02/1989 (Patient Refused) Meningococcal B Vaccine Aged Out No l onger eligible based on patient's age to complete this topic Meningococcal Vaccine Aged Out No regino roddy eligible based on patient's age to complete this topic RSV Immunizations Under 20 Months Aged Out No longer eligible based on patient's age to complete this topic Medical Devices Implanted Type Area Rim Fire Charger Operator Device Identifier Shelf Expiration Date Model / Serial / Lot Flex Band Dynamic Matrix Implanted:Qty: 1 on 09/06/2022 by Chinedu Lopez DPM at [facility] Right: Foot [id number] 01/23/2024 [facility] / [id number] / Insurance [facility] Advance Directives * Full Code (Latest Code Status on File) Date Activated Date Inactivated Comments 09/06/2022 12:13 PM 09/06/2022 3:56 PM * Full Code Date Activated Date Inactivated Comments 09/06/2022 12:13 PM 09/06/2022 12:13 PM * Full Code Date Activated Date Inactivated Comments 07/24/2022 2:30 PM 07/26/2022 3:27 PM Care Teams Farm Assistant Relationship Specialty [place] [address] [place] [address] PCP - General Nurse Practitioner Family 02/22/22
--- OUTSIDE RECORDS SUMMARY | 2024-10-30 12:20 | XMS_ITS | Clinical Summary ---
Author Organization [facility] Address [address] [place] [place] [address] Care Team Providers Care Biomedical Equipment Technician Name Role Phone Niels Moya MD Primary Care Provider [phone] Allergies Active Allergy Reactions Criticality Noted Date Comments Penicillins Rash High 01/17/2017 Shellfish Containing Products Anaphylaxis High 09/08 Medications lisinopriL (PRINIVIL,ZESTRI L) 40 mg tablet Take 40 mg by mouth daily 08/22/2020 Active Active Problems No known active problems Medical History Medical History Date Comments Personal history of other di seases of urinary system History of hematuria - (Adde d by TW Conv) Personal history of urinary calculi History of nephrolithiasis - (Added by TW Conv) Personal history of other di seases of the musculoskeletal system and connective tissue History of back pain - (Adde d by TW Conv) Personal history of other di seases of the circulatory system History of hypertension - (A dded by TW Conv) Family History Medical History Relation Name Comments Heart disease Father Family history of cardiac disorder - (Added by TW Conv) Heart disease Mother Family history of cardiac disorder - (Added by TW Conv) Relation Name Status Comments Father Mother Social History Tobacco Use Types Packs/Day Years Used Date Smoking Tobacco: Every Day Personal Safety Answer Date Recorded Getting School Help Needed Not on file 05/17 Sex and Gender Information Value Date Recorded Sex Assigned at Not on file Legal Sex 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 Gender Identity Not on file Sexual Orientation Not on file Obstetrics History Last Filed Vital Signs Vital Sign Reading Time Taken Comments Blood Pressure 109/83 09/08/2020 2:44 PM CDT Pulse 84 09/08/2020 2:44 PM CDT Temperature - - Respiratory Rate - - Oxygen Saturation - - Inhaled Oxygen Concentration - - Weight 120.2 kg (265 lb) 09/08/2020 2:44 PM CDT Height 185.4 cm (6' 1) 09/08/2020 2:44 PM CDT Body Mass Index 34.96 09/08/2020 2:44 PM CDT Plan of Treatment Not on file Insurance UHC CHOICE PLUS [facility] CHOICE PLUS Care Teams Biomedical Equipment Technician Relationship Specialty Start Date End Date Niels Moya MD [address] [place] [place] [address] PCP - General Family Medicine 09/08/20
--- NOTE | 2024-10-30 12:29 | PC.NURSE ---
Dr. Barrett at bedside assessing pt.
--- NOTE | 2024-10-30 12:30 | ED_ITS ---
HPI - General Adult General Chief complaint: Extremity Injury, Upper Stated complaint: L SHOULDER INJURY S/P FALL OUT OF TRUCK Time Seen by Provider: 10/30/24 12:23 History of Present Illness HPI narrative: 53-year-old male presenting to the emergency department for evaluation after having a fall out of a [employer] truck. Patient did land on his left shoulder. Patient denies striking his head denies any loss of consciousness. Patient denies any neck or back pain. Patient states he does have abrasion to his left knee but denies any significant pain of the left knee. Patient denies any chest pain or shortness of breath. Patient's primary complaint is left shoulder pain. Patient does have decreased range of motion of the left shoulder. Patient denies any pain of the distal humerus, elbow arm or hand or wrist of the left arm. Related Data Home Medications ?Medication ?Instructions ?Recorded ?Confirmed ?Last Taken ?Type lisinopril 40 mg tablet 40 mg PO DAILY 12/26/20 07/12/23 Unknown History Allergies Allergy/AdvReac Type Severity Reaction Status Date / Time shellfish derived Allergy Severe Anaphylaxis Verified 10/30/24 12:18 Penicillins AdvReac Mild HIVES Verified 10/30/24 12:18 Review of Systems Review of Systems: All systems reviewed & are unremarkable except as noted in HPI and below PMFSH Past Medical History Medical History (Updated 10/30/24 @ 13:47 by Huseyin Barrett MD) Kidney stones Dental caries Hypertension Dental abscess Right distal ureteral calculus Surgical History Surgical History (Updated 07/13/23 @ 14:51 by Judi Daniels NP) H/O vasectomy History of ankle surgery ORIF right ankle fracture and tendon repair S/P cystoscopy with ureteral stent placement Family History Family History (Updated 07/12/23 @ 14:04 by Judi Daniels NP) Other Family history non-contributory Social History Social History (Updated 07/13/23 @ 14:49 by Judi Daniels NP) Smoking packs per day: 0.5 Smoking cigarettes per day: 10.0 Smoking status: Current every day smoker Tobacco type: cigarettes Alcohol intake: current Alcohol use details: social Substance use type: does not use Living arrangements: with family Gender identity (if verbalized by the patient): Male Exam Narrative: APPEARANCE: Well appearing, no pain, no distress, well-nourished. HEAD: normocephalic, atraumatic. EYES: PERRLA/EOMI, conjunctivae clear. NOSE: Normal no drainage EARS:TMS clear with good light reflex. THROAT: Pharynx clear, no exudate. NECK: Supple. No adenopathy, no masses. RESPIRATORY: Airway patent, respirations nonlabored. Clear to auscultation bilaterally, no rales, rhonchi, wheezing. CARDIOVASCULAR: Regular rate and rhythm without murmurs rubs or gallops. ABDOMINAL: Soft, nontender, nondistended, normal bowel sounds MUSCULOSKELETAL: Decreased active range of motion of the left shoulder but does have fairly good range of motion with passive range of motion of the left shoulder, neurovascularly intact, no tenderness to palpation of proximal distal humerus elbow forearm hand or wrist. NEURO: Alert. Cranial nerves II through XII intact. Good gait. Good coordination SKIN: Warm, dry. Normal Color Course Vital Signs Vital signs: Vital Signs Temperature 98.1 F 10/30/24 12:19 Pulse Rate 115 H 10/30/24 12:19 Respiratory Rate 20 10/30/24 12:19 Blood Pressure 156/108 H 10/30/24 12:19 Pulse Oximetry 99 10/30/24 12:19 Oxygen Delivery Room Air 10/30/24 12:19 Temperature 98.1 F 10/30/24 12:19 Pulse Rate 102 H 10/30/24 14:40 Respiratory Rate 16 10/30/24 14:40 Blood Pressure 152/98 H 10/30/24 14:40 Pulse Oximetry 97 10/30/24 14:40 Oxygen Delivery Room Air 10/30/24 12:19 Medical Decision Making [facility] Narrative Medical decision making narrative: 53-year-old male presenting to the emergency department for evaluation for left shoulder injury. X-ray was negative for acute fracture or dislocation. Patient was treated with IM Toradol, p.o. Flexeril and p.o. [place]. Patient was provided a sling for comfort. Exam is suggested as for a rotator cuff injury. No evidence of fracture dislocation. Patient was updated results of his workup and plan for follow-up. Differential Diagnosis Differential Diagnosis: Shoulder dislocation, rotator cuff injury, humerus fracture, head injury, cervical spine injury. Vital Signs Vital Signs: Vital Signs Temperature 98.1 F 10/30/24 12:19 Pulse Rate 115 H 10/30/24 12:19 Respiratory Rate 20 10/30/24 12:19 Blood Pressure 156/108 H 10/30/24 12:19 Pulse Oximetry 99 10/30/24 12:19 Oxygen Delivery Room Air 10/30/24 12:19 Temperature 98.1 F 10/30/24 12:19 Pulse Rate 102 H 10/30/24 14:40 Respiratory Rate 16 10/30/24 14:40 Blood Pressure 152/98 H 10/30/24 14:40 Pulse Oximetry 97 10/30/24 14:40 Oxygen Delivery Room Air 10/30/24 12:19 Imaging Data Radiologist's impression: Impressions Shoulder X-Ray 10/30/24 13:13 IMPRESSION: Mild left acromioclavicular osteoarthritis and small subacromial spur. Discharge Plan Discharge Clinical Impression: Injury of left shoulder Patient Disposition: Home Condition: Stable Instructions: Antibiotic Form, Rotator Cuff Injury (ED), How to Use a Sling (ED), Shoulder Pain (ED) Additional Instructions: Scheduled ibuprofen for pain control. Flexeril for muscle spasm. [place] as needed for additional pain control. Have close follow-up with your primary care physician. Additionally you may need follow-up with Orthopedics. You may need an MRI of the left shoulder to closer evaluate the soft tissues including the rotator cuff. Patient Language: Icelandic Prescriptions: New cyclobenzaprine 10 mg tablet 10 mg PO BID PRN (Reason: muscle spasm) Qty: 14 0RF hydrocodone-acetaminophen 5-325 mg tablet 1 tablet PO Q12H PRN (Reason: pain) Qty: 14 0RF No Action clindamycin HCl 300 mg capsule 300 mg PO Q8H Qty: 30 0RF Rx Instructions: take with food chlorhexidine gluconate [Peridex] 0.12 % mouthwash 15 ml buccal BID Qty: 473 0RF lisinopril 40 mg tablet 40 mg PO DAILY Follow-up/Referrals: Margaert,Gabi Hester APRN [Primary Care Provider] - Yomi Womack MD [Physician] - Stand Alone Forms: Work/School Release IP
[2024-10-30] MEDS: HYDROcodone/acetaminophen (*CRX) 5-325 MG TABLET 1 TAB PO (12:40)
[2024-10-30] MEDS: KETOROLAC (*BKC) 60 MG/2 ML VIAL IM (12:41)
[2024-10-30] MEDS: CYCLOBENZAPRINE HCL 10 MG TABLET PO (12:44)
--- OUTSIDE RECORDS SUMMARY | 2024-10-30 13:31 | XMS_ITS | Clinical Summary ---
Author Organization [facility] Address [facility] [place] [address] Care Team Providers Care Pullman Clerk Name Role Phone Gabi Robles NP Primary Care Provider [phone] Allergies Active Allergy Reactions Criticality Noted Date [...] (08/30/2022): Added automatically from request for surgery [id number] Enteritis 07/24/2022 08/28/2022 Closed avulsion fracture of [...] How often do you attend chur or worship services? Never 07/24/2022 Do you belong to any clubs o r organizations such as rastafarian groups, unions, fraternal or athletic groups, or [...] Recorded Patient Health Questionnaire-2 Score 0 02/21/2023 [facility] - Occupational Stress Questionnaire Answer Date [...] place to sleep or slept in a skilled nursing (including now)? No 07/24/2022 Sex and Gender Information Value Date Recorded Sex Assigned at Male 07/20/2022 2:45 AM CDT Legal Sex Male 7:50 PM CDT Gender Identity Male 07/20/2022 2:45 AM CDT Sexual Orientation Straight 07/20/2022 2: 45 AM CDT Last Filed Vital Signs Vital Sign Reading Time Taken Comments Blood Pressure 139/89 05/13/2023 4:01 PM PARK INTERPRETIVE SPECIALIST Pulse 72 05/13/2023 4:01 PM PARK INTERPRETIVE SPECIALIST Temperature 36.3 C (97.3 F) 02/21/2023 2:46 PM PARK INTERPRETIVE SPECIALIST Respiratory Rate 20 02/21/2023 2:46 PM PARK INTERPRETIVE SPECIALIST Oxygen Saturation 99% 05/13/2023 4:01 PM PARK INTERPRETIVE SPECIALIST Inhaled Oxygen Concentration - - Weight 118 kg (260 lb 1.6 oz) 05/13/2023 4:01 PM PARK INTERPRETIVE SPECIALIST Height 185.4 cm (6' 1) 02/21/2023 2:46 PM PARK INTERPRETIVE SPECIALIST Body Mass Index 34.32 02/21/2023 2:46 PM PARK INTERPRETIVE SPECIALIST Plan of Treatment Health Maintenance Due Date Last Done Comments Colorectal Cancer Screening Colonoscopy (10 Years) 1971 Annual Physical 12/02/1974 Pneumococcal Vaccine: 50+ Ye ars (1 of 2 - PCV) 12/02/1990 Hepatitis B Vaccines (2 of 3 - 19+ 3-dose series) 08/08/2000 07/11/2000 Zoster Vaccines (1 of 2) 12/02/2021 COVID-19 Vaccine (1 - 2023-2 5 season) 2023 PHQ-2 (Physician [place]) 03/24/2024 02/21/2023 DTaP, Tdap and Td Vaccines [...] this topic Medical Devices Implanted Type Area Recoverer Device Identifier Shelf Expiration Date Model / Serial / Lot Flex Band Dynamic Matrix Implanted:Qty: 1 on 09/06/2022 by Chinedu Lopez DPM at [facility] Right: Foot [id number] 01/23/2024 [facility] / [id number] / Insurance [facility] Advance Directives * Full Code (Latest Code Status on File) Date Activated Date Inactivated Comments 09/06/2022 12:13 PM 09/06/2022 3:56 PM * Full Code Date Activated Date Inactivated Comments 09/06/2022 12:13 PM 09/06/2022 12:13 PM * Full Code Date Activated Date Inactivated Comments 07/24/2022 2:30 PM 07/26/2022 3:27 PM Care Teams Pullman Clerk Relationship Specialty [place] [address] [place] [address] PCP - General Nurse Practitioner Family 02/22/22
--- OUTSIDE RECORDS SUMMARY | 2024-10-30 13:31 | XMS_ITS | Clinical Summary ---
Author Organization [facility] Care Team Providers Care Broker Associate Name Role Phone Unavailable Primary Care Provider [...]
--- OUTSIDE RECORDS SUMMARY | 2024-10-30 13:31 | XMS_ITS | Encounter Summary ---
Author Organization [facility] Address [address] [place] [address] Care Team Providers Care Social Services Designee Name Role Phone Gabi Robles NP Primary Care Provider [phone] Encounter Details Date Type Department Care Team (Late st Contact Info) Description 04/25/2022 [employer] Message Enc [facility] Family & Internal Medicine [address] [address] Gabi Robles [place] [id number] [place] [id number] Test results Social History Tobacco Use [...] Coronavirus/COVID-19? 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
--- OUTSIDE RECORDS SUMMARY | 2024-10-30 13:31 | XMS_ITS | Clinical Summary ---
Author Organization [facility] Address [address] [place] [place] [address] Care Team Providers Care Director Of Global Talent Name Role Phone Niels Moya MD Primary Care Provider [phone] Allergies Active Allergy Reactions Criticality Noted Date [...] on file Legal Sex Male 6:31 AM ANTHROPOLOGY DEPARTMENT CHAIR Gender Identity Not on file Sexual Orientation [...] Not on file Insurance UHC CHOICE PLUS [facility] CHOICE PLUS Care Teams Director Of Global Talent Relationship Specialty Start Date End Date Niels Moya MD [address] [place] [address] PCP - General Family Medicine 09/08/20
--- OUTSIDE RECORDS SUMMARY | 2024-10-30 13:31 | XMS_ITS | Encounter Summary ---
Author Organization [facility] Address [facility] [place] [address] Care Team Providers Care Steam Fitter Helper Name Role Phone Gabi Robles NP Primary Care Provider [phone] Encounter Details Date Type Department Care Team (Latest Contact Info) Description 04/29/2023 [employer] Message Enc [facility] Mult[facility]pecialty Care - [address], [address] [place] [id number] Mindshapesmalachi, [facility] Provider Reschedule procedure Social History Tobacco [...] often do you attend chur ch or judaism services? Never 07/24/2022 Do you belong to any clubs o r organizations such as anabaptist groups, unions, fraternal or athletic groups, or [...] Recorded Patient Health Questionnaire-2 Score 0 02/21/2023 [facility] - [...] place to sleep or slept in a intermediate (including now)? No 07/24/2022 Sex and Gender [...] documented as of this encounter Care Teams Steam Fitter Helper Relationship Specialty [place] [address] [place] [address] PCP - General Nurse Practitioner Family 02/22/22 documented as of this encounter
[2024-10-30 14:40] VITALS: BP 152/98; PULSE 102; RESP 16; O2SAT 97
== END 2024-10-30 15:12 | disposition home or self-care (01) ==
PROVIDERS: Emergency Provider Emergency Medicine; PCP Nurse Practitioner Family
DX: S49.92XA Unspecified injury of left shoulder and upper arm, initial encounter (principal); S80.212A Abrasion, left knee, initial encounter; I10 Essential (primary) hypertension; W17.89XA Other fall from one level to another, initial encounter
CPT/HCPCS: 73030; 96372; 99283; A4565; A9270; J1885